=== PATIENT | female | born 1950 | race Caucasian/White ===

== ENCOUNTER → 2019-01-10 14:59 | Outpatient (CLI) | payer MEDICARE, BC ==
[~2019-01-10 14:59] MED LIST: CRANBERRY PO; DURICEF500 MG PO; HYDROCODON-ACE1 EAC7 PO; MOBIC7.5 MG PO; NEXIUM20 MG PO; TUMERIC PO; ULTRAM50 MG PO
[2019-01-25 06:28] VITALS: BMI 30.2
== END | disposition home or self-care (01) ==
LOC: D.MRI 14:59
PROVIDERS: ATTEND Orthopaedic Surgery
DX: M25.831 Other specified joint disorders, right wrist (principal)

== ENCOUNTER 2019-01-25 06:08 | Day surgery (SDC) | payer MEDICARE, BC ==
[2019-01-24 10:57] LABS: HEMATOCRIT 40.5 % (36.0-48.0); HEMOGLOBIN 13.3 g/dL (12-16); MCHC 32.8 g/dL (31.0-37.0); MCV 91.4 fL (80.0-100.0); MEAN PLATELET VOLUME 8.7 fL (7.4-10.4); RBC 4.43 10x6/uL (4.00-5.40); RDW 12.4 % (11.5-14.5)
[~2019-01-25] VITALS: Ht 157.5 cm; Wt 74.8 kg
[~2019-01-25 06:08] MED LIST changes: -DURICEF500 MG PO; -HYDROCODON-ACE1 EAC7 PO
[2019-01-25 06:28] VITALS: BP 172/89; Ht 157.5 cm; Wt 74.8 kg
[2019-01-25] MEDS ORDERED: DURICEF500 MG PO (09:00)
[2019-01-25] MEDS ORDERED: HYDROCODON-ACE1 EAC7 PO (09:00)
--- NOTE | 2019-01-25 11:06 | NUR ---
PT STATES PAIN "MINOR"
--- NOTE | 2019-01-25 11:48 | OP ---
PATIENT NAME: SAMEERA MORRIS MEDICAL RECORD: [id number] :48 LOCATION:[facility] ADMISSION DATE: SURGEON: ISAURO MELCHOR DO DATE OF OPERATION: 01/25/2019 PROCEDURE PERFORMED: Right wrist excision of ganglion and open carpal tunnel release. PREOPERATIVE DIAGNOSIS: Right wrist ganglion with mass effect on the median nerve causing acute carpal tunnel syndrome. POSTOPERATIVE DIAGNOSIS: Right wrist ganglion with mass effect on the median nerve causing acute carpal tunnel syndrome. INDICATIONS: Ms. Morris is a 68-year-old female who has been complaining of right hand numbness and left hand numbness for weeks. I saw her in the clinic approximately 2 weeks ago, got MRIs on that showed a large ganglion cyst in the wrist in the volar aspect that was pressing the flexor tendons anteriorly and causing mass effect on the median nerve. When I saw her again, she said the left one had subsided and stopped hurting. It was not numb, but the right one was still hurting. She had been set up for bilateral, but she only wanted to do the left. I told her that I would go down and get the ganglion cyst out, but there is a chance of recurrence. Also, I would do a carpal tunnel release, open due to the fact that the median nerve being compressed and wanted it to have plenty of room. She was okay with that and was aware of the fact that she may not get sensation back and may have damaged that nerve due to the mass effect of the ganglion cyst for so long. She is aware of the risks including infection, bleeding, damage to that median nerve and other nerves in the area, vessels, need for further surgery, and even and she signed the consent. SURGEON: Isauro Melchor DO PAID SEARCH MARKETING STRATEGIST: I was assisted by July Fleming, certified surgical first leveler. DESCRIPTION OF PROCEDURE: The patient was taken to the operative suite, given 2 grams of Ancef preoperatively, sedated, and LMA was placed. Right upper extremity was then prepped and draped in sterile fashion. Timeout was performed, everyone was in agreement of the correct side, site, patient and procedure. The right upper extremity was then exsanguinated with an Esmarch. Tourniquet was inflated to 250 mmHg and was up for 20 minutes. I then began over with the incision over the flexor carpi radialis tendon and careful dissection was made down to the ganglion cyst, which was just under the flexor tendons. The ganglion cyst was excised and the stalk was seen to come off the radiocarpal joint right at the ulna. The stalk was then burned with the bipolar. Then I did the open carpal tunnel release in line with the fourth ray and with a 15-blade careful dissection was made down to the transverse carpal ligament, using a pediatric nasal speculum spread the soft tissues and the transverse carpal ligament was incised, freeing up the median nerve completely from proximal to distal, at that site. The tourniquet was then let down. There was minimal bleeding that was coagulated with bipolar and pressure. The skin was then closed with 3-0 Vicryl in inverted interrupted fashion over the flexor carpi radialis tendon and a 4-0 Monocryl ran on the skin. The carpal tunnel site was closed with 4-0 Monocryl in a horizontal mattress fashion and then Prineo glue was placed on both sides. She was wrapped up with Adaptic, 4 x 4s, OPERATIVE REPORT [id number] SAMEERA MORRIS and Libbyan lightly wrapped around the hand and the wrist. She was awakened and taken to recovery in stable condition. Blood loss approximately 20 mL. COMPLICATIONS: None. TRANSINT:[id number] Voice Confirmation ID: [id number] DOCUMENT ID: [id number] ISAURO MELCHOR DO at 1148 CC: [id number] DICTATION DATE: 01/25/19 1009 CONNIE CLEANER: 01/25/19 1130 REG [facility] [address] [id number]
--- NOTE | 2019-01-25 12:35 | NUR ---
PATIENT AMBULATING AROUND ROOM WITHOUT UNSTEADINESS OR DIZZINESS, AMBULATES TO BATHROOM AND VOIDS LARGE AMOUNT IN TOILET WITHOUT DIFFICULTY, PIV DC'D WITH TIP INTACT
== END 2019-01-25 12:41 | disposition home or self-care (01) ==
LOC: D.OPS 06:08 → D.PAN 10:00 → D.OPS 12:41
PROVIDERS: Anesthesiology; ATTEND Orthopaedic Surgery
DX: M67.431 Ganglion, right wrist (principal); G56.01 Carpal tunnel syndrome, right upper limb